=== PATIENT | male | born 1970 | race Caucasian/White ===

== ENCOUNTER 2020-05-15 12:23 | Emergency (ER) | payer OTHER, SELFPAY ==
--- NOTE | 2020-05-15 12:33 | ED_ITS ---
HPI - Psych General Chief Complaint: Psychiatric Symptoms Stated Complaint: crisis Time Seen by Provider: 05/15/20 12:31 Source: patient and EMS Mode of arrival: EMS Limitations: no limitations History of Present Illness HPI Narrative: 50-year-old male with a past medical history of anxiety, depression, substance abuse. Per patient he failed a drug screen at work and was fired. He nade statements there that he was going to hang himself. Pt currently denies SI/HI. Tells me he has been anxious and depressed recently. he tells me he smoked a joint yesterday and felt strange after. Denies any other additional substance use. He has been compliant with his Suboxone at home. No physical complaints. MD complaint: feels depressed Onset (ago): day(s) Duration: constant History of same: Yes Relieving factors: none Exacerbating factors: none Associated psychiatric symptoms: none Associated symptoms: denies other symptoms Treatments prior to arrival: none Related Data Allergies Allergy/AdvReac Type Severity Reaction Status Date / Time No Known Allergies Allergy Unverified 03/12/20 16:53 [No Known Allergies*] tynenol Allergy Unknown Uncoded 05/09/19 00:00 Review of Systems Review of Systems: Yes all other systems are reviewed and are negative Constitutional: Constitutional: Reports no additional constitutional complaints, Denies body ache(s), Denies chills, Denies fever(s), Denies headache(s) and Denies weakness Eyes: Eyes: Reports no additional eye complaints and Denies change in vision ENT: Reports system reviewed and no additional complaints, except as documented, Denies dizziness, Denies headache(s), Denies nasal congestion, Denies nasal discharge and Denies neck pain Cardiovascular: Cardiovascular: Reports no additional cardiovascular complaints, Denies chest pain, Denies leg edema and Denies dyspnea Respiratory: Respiratory: Reports no additional respiratory complaints, Denies cough and Denies dyspnea Gastrointestinal: Gastrointestinal: Reports no additional gastrointestinal complaints, Denies abdominal pain, Denies diarrhea, Denies nausea and Denies vomiting Genitourinary: Genitourinary: Denies urinary incontinence Musculoskeletal: Musculoskeletal: Reports no additional musculoskeletal complaints, Denies back pain, Denies arthralgias, Denies joint swelling, Denies neck pain, Denies numbness and Denies tingling Integumentary/Breasts: Skin/Breast: Reports system reviewed and no additional complaints, except as docu and Denies rash Neurologic: Reports system reviewed and no additional complaints, except as documented, Denies Abnormal speech present, Denies dizziness, Denies headache(s), Denies numbness, Denies tingling and Denies weakness Psychiatric: Psychiatric: Reports anxiety, Reports depression, Denies homicidal ideation and Denies suicidal ideation [facility] Past Medical History Attestation statement: The following information was validated with the patient. Source: obtained from family and nursing notes reviewed Social History Social History Alcohol intake: former Smoking Status: Current every day smoker Smoked in Last 30 Days: Yes Use of substances other than those prescribed or required for medical reasons: Yes Substance Use Type: Marijuana Advance Directives: No Advance Directives Information Provided: No Physical Exam Vital Signs: Vital Signs: Last Vital Signs Temp 98.8 F 05/15/20 12:45 Pulse 118 H 05/15/20 12:45 Resp 18 05/15/20 12:45 BP 140/100 H 05/15/20 12:45 Pulse Ox 96 05/15/20 12:45 Body Mass Index 31.3 Const: General: cooperative, healthy appearing, comfortable, no acute distress and anxious Orientation/consciousness: patient oriented x3 Limitations: no limitations HENMT: Head: Yes normal to inspection Ears: hearing grossly normal bilaterally General nose exam: Normal external nose present Face and sinu s: Yes normal facial exam Mouth: Normal oral and palatal mucosa present Throat: Yes posterior oropharynx normal Eyes: General: appearance normal, both eyes and all related structures Pupils: Equal, round and reactive pupils present Neck: Neck: Yes normal visual inspection Chest: Chest palpation & inspection: normal inspection of the chest Resp: Effort & Inspection: normal respiratory effort Auscultation: clear to auscultation bilaterally Cardio: Rate: regular rate Rhythm: regular rhythm Peripheral pulses: Peripheral pulses 2+ throughout GI: Inspection: Yes normal to inspection Palpation (GI): Soft to palpation and nontender Auscultation: normal bowel sounds Back/Spine/Pelvis: Thoracic/Lumbar Spine: thoracic and lumbar spine normal to inspection Skin: General skin exam: no rashes or lesions noted Neuro: General: patient oriented x3, no focal motor deficits and normal sensation to monofilament Cranial nerves: Yes Equal, round and reactive pupils present Cognition (Neuro): normal cognition Speech: No Abnormal speech present Gait exam (Neuro): Normal gait present Motor exam (neuro): 5/5 motor strength present throughout Extrem: General: Yes normal to inspection Course Course Course Narrative: 50-year-old here with depression, anxiety, suicidal statements made earlier (now denies). No physical complaints. No concern for acute ingestion or trauma. Will need COFFEY, ADRIÁN evaluation. 1330-Seen by SWAT, Cleared for discharge home. Pt feels improved on discharge. Tells me he was frustrated and upset today and that is why he made the statements he did. plan for discharge home with outpatient resources. Reviewed worrisome signs and symptoms when to return to the emergency department. Comfortable discharge home. MDM - Psych Restraints Face to Face Assessment: Face to Face Assessment: Current Situation: After assessment of the patient, a review of the pertinent medical record and a discussion with nursing staff, I feel the patient requires a restrain intervention. Reaction To: [] Medical Condition: [] Behavioral State: [] Continued Need: [] Discharge Plan Discharge Clinical Impression: Adjustment disorder, Depression, Anxiety Patient Disposition: Home, Self-Care Instructions: Depression (ED), Anxiety (ED) Referrals: Donald Velásquez MD [Primary Care Provider] - 2 days Interventions: ED Discharge Assessment Last Done: 05/15/20 14:37 Discharge Date/Time: 05/15/20 14:37
[2020-05-15 12:41] VITALS: BP 140/100; PULSE 118; RESP 18; TEMP 37.1; O2SAT 96; BMI 31.3
[2020-05-15 12:45] VITALS: BP 140/100; PULSE 118; RESP 18; TEMP 37.1; O2SAT 96
[2020-05-15] MEDS: ALPRAZolam 0.25 MG TABLET PO (12:57)
--- NOTE | 2020-05-15 13:38 | MHC.CARE ---
CARE Team consults case, due to Krueger presentations. He denies any harm to self or others, states I just get mad and upset and talk shit. He mentioned he got tested in his work and was positive since he used marijuana last nigh. He presented upset at his actions and frustration due to him knowing he will, loose his job. Rei has a safe and stabled home with his mother. He mentioned I just want to go home and watch TV in the sofa. During consult he spoke about his frustrations in life and how he edwards not make right decisions and [employer] is coming up and wanted to keep his job. Declines to receive any further services or OP referrals.
== END 2020-05-15 14:37 | disposition home or self-care (01) ==
PROVIDERS: Emergency Provider Internal Medicine; PCP Family Medicine
DX: F33.1 Major depressive disorder, recurrent, moderate (principal); R45.851 Suicidal ideations; F41.1 Generalized anxiety disorder; F43.0 Acute stress reaction; F12.90 Cannabis use, unspecified, uncomplicated; F17.200 Nicotine dependence, unspecified, uncomplicated; Z71.6 Tobacco abuse counseling
CPT/HCPCS: 99284